=== PATIENT | female | born 1980 | race Caucasian/White ===

== ENCOUNTER 2016-05-25 17:05 | Emergency (ER) | payer OTHER ==
[~2016-05-25] VITALS: Ht 160 cm; Wt 69.4 kg
[~2016-05-25 17:05] MED LIST: MOTRIN800 MG PO; ROBITUSSIN AC,T10 ML PO
[2016-05-25 18:09] LABS: HEMATOCRIT 40.8 % (36.0-46.0); MCH 28.7 PG (29.0-34.0); MCHC 34.3 G/DL (30.0-36.0); MCV 83.8 FL (83-99); MEAN PLAT.VOLUME 10.4 uM^3 (9.5-12.4); PLATELET COUNT 226 K/uL (156-360); RBC DIS.WIDTH-CV 12.3 % (11.8-14.6); RBC DIS.WIDTH-SD 37.2 % (39-53); RED BLOOD COUNT 4.87 M/uL (3.80-5.20); WHITE BLOOD COUNT 4.6 K/uL (4.1-10.2)
[2016-05-25 18:20] LABS: CHLORIDE 104 mEq/L (99-109); POTASSIUM 3.7 mEq/L (3.7-5.4); SODIUM 139 mEq/L (136-147)
[2016-05-25 18:22] LABS: GLUCOSE 111 mg/dL (70-99)
[2016-05-25 18:23] LABS: ANION GAP 13 MEQ/L (2-14)
[2016-05-25 18:26] LABS: GFR ESTIMATE (CALCULATED) > 59 mL/min/
[2016-05-25 18:27] LABS: UREA NITROGEN (BUN) 5 mg/dL (9-23)
[2016-05-25 18:37] LABS: QUANTITATIVE HCG < 4.0 MIU/ML
[2016-05-25 23:24] LABS: D-DIMER ELISA 0.32 mg/L FEU (< 0.57)
[2016-05-25 23:26] LABS: TROP-I INTERPRETATION NEGATIVE; TROPONIN-I < 0.01 ng/mL (0.0-0.30)
[2016-05-26] MEDS ORDERED: ZOFRAN4 MG PO (00:01)
[2016-05-26 01:00] VITALS: BP 127/92
== END 2016-05-26 01:24 | disposition home or self-care (01) ==
LOC: EME 17:05
PROVIDERS: Emergency Medicine
DX: E86.0 Dehydration (principal); R19.7 Diarrhea, unspecified; R11.2 Nausea with vomiting, unspecified; R55 Syncope and collapse; S00.03XA Contusion of scalp, initial encounter; W18.30XA Fall on same level, unspecified, initial encounter; R00.2 Palpitations; R05 Cough
CPT/HCPCS: 71020; 80048; 84484; 84702; 85027; 85379; 93005; 99281; 99284; J7030

== ENCOUNTER 2016-08-22 17:29 | Emergency (ER) | payer OTHER ==
[~2016-08-22] VITALS: Ht 160 cm; Wt 72.1 kg
[~2016-08-22 17:29] MED LIST changes: +ZOFRAN4 MG PO
[2016-08-22 21:00] LABS: MCH 28.7 PG (29.0-34.0); MCHC 33.8 G/DL (30.0-36.0); MCV 84.9 FL (83-99); MEAN PLAT.VOLUME 10.2 uM^3 (9.5-12.4); PLATELET COUNT 328 K/uL (156-360); RBC DIS.WIDTH-CV 12.3 % (11.8-14.6); RBC DIS.WIDTH-SD 37.8 % (39-53); RED BLOOD COUNT 4.71 M/uL (3.80-5.20)
[2016-08-22 21:14] LABS: CHLORIDE 103 mEq/L (99-109); D-DIMER ELISA < 0.15 mg/L FEU (< 0.57); POTASSIUM 3.4 mEq/L (3.7-5.4); SODIUM 138 mEq/L (136-147)
[2016-08-22 21:16] LABS: GLUCOSE 104 mg/dL (70-99)
[2016-08-22 21:17] LABS: ANION GAP 10 MEQ/L (2-14)
[2016-08-22 21:18] LABS: TOTAL BILIRUBIN 0.5 mg/dL (0.0-1.0)
[2016-08-22 21:19] LABS: ALKALINE PHOSPHATASE 77 IU/L (3-129)
[2016-08-22 21:20] LABS: GFR ESTIMATE (CALCULATED) > 59 mL/min/
[2016-08-22 21:21] LABS: UREA NITROGEN (BUN) 6 mg/dL (9-23)
[2016-08-22 21:22] LABS: TROP-I INTERPRETATION NEGATIVE; TROPONIN-I < 0.01 ng/mL (0.0-0.30)
[2016-08-22] MEDS ORDERED: VENTOLIN HFA18 GM IH (21:57)
[2016-08-22] MEDS ORDERED: ZITHROMAX Z-PA250 MG PO (21:57)
[2016-08-22 22:07] VITALS: BP 134/74
== END 2016-08-22 22:10 | disposition home or self-care (01) ==
LOC: EME 17:29
PROVIDERS: Physician Assistant
DX: J32.9 Chronic sinusitis, unspecified (principal); J06.9 Acute upper respiratory infection, unspecified; R06.00 Dyspnea, unspecified
CPT/HCPCS: 71020; 80053; 84484; 85027; 85379; 93005; 99281; 99285

== ENCOUNTER 2016-09-17 10:28 | Emergency (ER) | payer OTHER ==
[~2016-09-17] VITALS: Ht 157.5 cm; Wt 72.5 kg
[~2016-09-17 10:28] MED LIST changes: +VENTOLIN HFA18 GM IH; +ZITHROMAX Z-PA250 MG PO
[2016-09-17 11:11] LABS: EOSINOPHIL (%) 0.3 % (0-5); IMMATURE GRANULOCYTE (%) 0.2 % (0.0-0.7); LYMPHOCYTE COUNT 1.5 K/uL (1.0-2.8); MCH 28.8 PG (29.0-34.0); MCHC 33.7 G/DL (30.0-36.0); MCV 85.3 FL (83-99); MEAN PLAT.VOLUME 10.2 uM^3 (9.5-12.4); MONOCYTE (%) 7.7 % (3-12); MONOCYTE COUNT 0.5 K/uL (0-0.8); NEUTROPHIL (%) 66.1 % (45-76); PLATELET COUNT 334 K/uL (156-360); RBC DIS.WIDTH-CV 12.4 % (11.8-14.6); RBC DIS.WIDTH-SD 38.4 % (39-53); RED BLOOD COUNT 5.04 M/uL (3.80-5.20)
[2016-09-17 11:18] LABS: CHLORIDE 107 mEq/L (99-109); POTASSIUM 3.9 mEq/L (3.7-5.4); SODIUM 140 mEq/L (136-147)
[2016-09-17 11:20] LABS: GLUCOSE 109 mg/dL (70-99)
[2016-09-17 11:21] LABS: ANION GAP 10 MEQ/L (2-14); D-DIMER ELISA < 0.15 mg/L FEU (< 0.57)
[2016-09-17 11:22] LABS: TOTAL BILIRUBIN 0.9 mg/dL (0.0-1.0)
[2016-09-17 11:24] LABS: ALKALINE PHOSPHATASE 81 IU/L (3-129); GFR ESTIMATE (CALCULATED) > 59 mL/min/
[2016-09-17 11:25] LABS: UREA NITROGEN (BUN) 10 mg/dL (9-23)
[2016-09-17 11:28] LABS: TROP-I INTERPRETATION NEGATIVE; TROPONIN-I < 0.01 ng/mL (0.0-0.30)
[2016-09-17 11:32] LABS: QUANTITATIVE HCG < 4.0 MIU/ML
[2016-09-17] MEDS ORDERED: ATARAX,VISTARIL50 MG PO (12:32)
[2016-09-17 12:51] VITALS: BP 134/104
== END 2016-09-17 12:53 | disposition home or self-care (01) ==
LOC: EXP 10:28 → EME 10:28 → EXP 12:53
PROVIDERS: Physician Assistant
DX: F41.0 Panic disorder [episodic paroxysmal anxiety] (principal); R00.2 Palpitations; R07.89 Other chest pain; R42 Dizziness and giddiness
CPT/HCPCS: 71020; 80053; 84484; 84702; 85025; 85379; 93005; 99281; 99283

== ENCOUNTER 2016-11-15 07:46 | Emergency (ER) | payer OTHER ==
[~2016-11-15] VITALS: Ht 157.5 cm; Wt 72.0 kg
[~2016-11-15 07:46] MED LIST changes: +ATARAX,VISTARIL50 MG PO
[2016-11-15 11:36] LABS: ADD MIUA? NO; BILIRUBIN NEGATIVE; BLOOD NEGATIVE; COLOR STRAW ((YELLOW)); GLUCOSE (STRIP) NEGATIVE; KETONES NEGATIVE; LEUKOCYTES NEGATIVE; NITRITE NEGATIVE; PROTEIN (STRIP) NEGATIVE; SPECIFIC GRAVITY 1.003 (1.000-1.030); UCUL ADDED? NO; UROBILINOGEN 0.2 MG/DL (0.2-1.0)
[2016-11-15 11:43] LABS: INTERNAL CONTROL VALID? YES
[2016-11-15 12:24] LABS: HEMATOCRIT 42.2 % (36.0-46.0); MCH 28.8 PG (29.0-34.0); MCHC 32.9 G/DL (30.0-36.0); MCV 87.4 FL (83-99); MEAN PLAT.VOLUME 10.5 uM^3 (9.5-12.4); PLATELET COUNT 320 K/uL (156-360); RBC DIS.WIDTH-CV 13.1 % (11.8-14.6); RBC DIS.WIDTH-SD 41.9 % (39-53); RED BLOOD COUNT 4.83 M/uL (3.80-5.20); WHITE BLOOD COUNT 10.3 K/uL (4.1-10.2)
[2016-11-15 12:39] LABS: CHLORIDE 104 mEq/L (99-109); POTASSIUM 3.8 mEq/L (3.7-5.4); SODIUM 140 mEq/L (136-147)
[2016-11-15 12:41] LABS: GLUCOSE 91 mg/dL (70-99)
[2016-11-15 12:42] LABS: ANION GAP 10 MEQ/L (2-14)
[2016-11-15 12:45] LABS: GFR ESTIMATE (CALCULATED) > 59 mL/min/
[2016-11-15 12:46] LABS: UREA NITROGEN (BUN) 8 mg/dL (9-23)
[2016-11-15] MEDS ORDERED: ZYRTEC10 M2 PO (13:08)
[2016-11-15] MEDS ORDERED: MUCUS ER600 MG PO (13:08)
[2016-11-15] MEDS ORDERED: ANTIVERT12.5 MG PO (13:08)
[2016-11-15 13:37] VITALS: BP 147/92
== END 2016-11-15 13:38 | disposition home or self-care (01) ==
LOC: EME 07:46
PROVIDERS: Nurse Practitioner Family
DX: R51 Headache (principal); Z91.048 Other nonmedicinal substance allergy status; R42 Dizziness and giddiness; R20.0 Anesthesia of skin; R13.10 Dysphagia, unspecified; R11.0 Nausea
CPT/HCPCS: 80048; 81003; 84703; 85027; 93005; 99281; 99283; J1100

== ENCOUNTER 2017-01-25 23:03 | Emergency (ER) | payer OTHER ==
[~2017-01-25] VITALS: Ht 157.5 cm; Wt 70.0 kg
[~2017-01-25 23:03] MED LIST changes: +ANTIVERT12.5 MG PO; +MUCUS ER600 MG PO; +ZYRTEC10 M2 PO
[2017-01-25 23:37] LABS: HEMATOCRIT 41.1 % (36.0-46.0); MCH 29.2 PG (29.0-34.0); MCHC 34.1 G/DL (30.0-36.0); MCV 85.8 FL (83-99); MEAN PLAT.VOLUME 10.2 uM^3 (9.5-12.4); PLATELET COUNT 332 K/uL (156-360); RBC DIS.WIDTH-CV 12.4 % (11.8-14.6); RBC DIS.WIDTH-SD 39.1 % (39-53); RED BLOOD COUNT 4.79 M/uL (3.80-5.20); WHITE BLOOD COUNT 11.6 K/uL (4.1-10.2)
[2017-01-25 23:47] LABS: D-DIMER ELISA < 150.00 ng/mLDDU (<230)
[2017-01-25 23:51] LABS: CHLORIDE 106 mEq/L (99-109); POTASSIUM 3.5 mEq/L (3.7-5.4); SODIUM 137 mEq/L (136-147)
[2017-01-25 23:53] LABS: GLUCOSE 107 mg/dL (70-99)
[2017-01-25 23:54] LABS: ANION GAP 13 MEQ/L (2-14)
[2017-01-25 23:55] LABS: TOTAL BILIRUBIN 0.7 mg/dL (0.0-1.0)
[2017-01-25 23:56] LABS: ALKALINE PHOSPHATASE 79 IU/L (3-129)
[2017-01-25 23:57] LABS: GFR ESTIMATE (CALCULATED) > 59 mL/min/
[2017-01-25 23:58] LABS: UREA NITROGEN (BUN) 9 mg/dL (9-23)
[2017-01-25 23:59] LABS: TROP-I INTERPRETATION NEGATIVE; TROPONIN-I < 0.01 ng/mL (0.0-0.30)
[2017-01-26] LABS: LIPASE 22 U/L (1.0-51.0)
[2017-01-26 01:24] LABS: SERUM ETHYL ALCOHOL < 10 mg/dL
[2017-01-26 01:27] LABS: CREATINE KINASE 44 IU/L (1-294)
[2017-01-26 02:36] LABS: AMPHETAMINE NEGATIVE (500 ng/mL); BARBITURATES NEGATIVE (200 ng/mL); BENZODIAZEPINES NEGATIVE (150 ng/mL); COCAINE NEGATIVE (150 ng/mL); INTERNAL CONTROLS VALID? YES; METHADONE NEGATIVE (200 ng/mL); METHAMPHETAMINE NEGATIVE (500 ng/mL); OPIATES (MORPHINE) NEGATIVE (100 ng/mL); OXYCODONE NEGATIVE (100 ng/mL); PHENCYCLIDINE NEGATIVE (25 ng/mL); PROPOXYPHENE NEGATIVE (300 ng/mL); THC CANNABINOIDS NEGATIVE (50 ng/mL); TRICYCLIC ANTIDEPRESSANTS NEGATIVE (300 ng/mL)
[2017-01-26 06:18] VITALS: BP 121/82
== END 2017-01-26 06:19 | disposition home or self-care (01) ==
LOC: EME 23:03
PROVIDERS: Emergency Medicine
DX: R00.0 Tachycardia, unspecified (principal); R07.89 Other chest pain; N63 Unspecified lump in breast; M79.602 Pain in left arm
CPT/HCPCS: 71020; 71275; 80053; 82550; 83690; 84484; 85027; 85379; 93005; 99281; 99285; G0480; J7030

== ENCOUNTER 2017-03-11 18:56 | Emergency (ER) | payer OTHER ==
[~2017-03-11] VITALS: Ht 160 cm; Wt 68.2 kg
[2017-03-11] MEDS ORDERED: ULTRAM50 MG PO (20:58)
[2017-03-11] MEDS ORDERED: ZOFRAN ODT4 MG PO (20:58)
[2017-03-11 21:34] VITALS: BP 136/99
== END 2017-03-11 21:36 | disposition home or self-care (01) ==
LOC: EME 18:56
DX: S06.0X0A Concussion without loss of consciousness, initial encounter (principal); W50.0XXA Accidental hit or strike by another person, initial encounter
CPT/HCPCS: 70450; 99281; 99283

== ENCOUNTER 2017-05-06 15:40 | Emergency (ER) | payer OTHER ==
[~2017-05-06] VITALS: Ht 160 cm; Wt 63.3 kg
[~2017-05-06 15:40] MED LIST changes: +ULTRAM50 MG PO; +ZOFRAN ODT4 MG PO
[2017-05-06 16:05] LABS: HEMATOCRIT 45.7 % (36.0-46.0); MCH 29.4 PG (29.0-34.0); MCHC 33.9 G/DL (30.0-36.0); MCV 86.6 FL (83-99); MEAN PLAT.VOLUME 10.9 uM^3 (9.5-12.4); PLATELET COUNT 309 K/uL (156-360); RBC DIS.WIDTH-CV 12.7 % (11.8-14.6); RBC DIS.WIDTH-SD 40.2 % (39-53); RED BLOOD COUNT 5.28 M/uL (3.80-5.20); WHITE BLOOD COUNT 5.9 K/uL (4.1-10.2)
[2017-05-06 16:20] LABS: ANION GAP 10 MEQ/L (2-14); CHLORIDE 101 MEQ/L (99-109); SAMPLE HEMOLYSIS CHECK 0; SAMPLE ICTERIC CHECK 0; SAMPLE LIPEMIA CHECK 0; SODIUM 139 MEQ/L (136-147)
[2017-05-06 16:22] LABS: TROP-I INTERPRETATION NEGATIVE; TROPONIN-I < 0.01 ng/mL (0.0-0.30)
[2017-05-06 16:25] LABS: GFR ESTIMATE (CALCULATED) > 59 mL/min/; GLUCOSE 109 mg/dL (70-99); UREA NITROGEN (BUN) 8 mg/dL (9-23)
[2017-05-06 16:50] LABS: QUANTITATIVE HCG < 4.0 MIU/ML
[2017-05-06 17:53] LABS: D-DIMER ELISA < 150.00 ng/mLDDU (<230)
[2017-05-06] MEDS ORDERED: MEDROL DOSEPAK4 MG PO (18:52)
[2017-05-06] MEDS ORDERED: NAPROSYN500 MG PO (18:52)
[2017-05-06 19:48] VITALS: BP 116/73
== END 2017-05-06 19:50 | disposition home or self-care (01) ==
LOC: EME 15:40
DX: S16.1XXA Strain of muscle, fascia and tendon at neck level, initial encounter (principal); M54.12 Radiculopathy, cervical region; X50.0XXA Overexertion from strenuous movement or load, initial encounter; R07.9 Chest pain, unspecified; Z88.6 Allergy status to analgesic agent; G89.29 Other chronic pain
CPT/HCPCS: 70450; 71020; 72125; 80048; 84484; 84702; 85027; 85379; 93005; 99281; 99285; J1100

== ENCOUNTER 2017-09-10 17:12 | Emergency (ER) | payer OTHER ==
[~2017-09-10] VITALS: Ht 157.5 cm; Wt 59.3 kg
[~2017-09-10 17:12] MED LIST changes: +MEDROL DOSEPAK4 MG PO; +NAPROSYN500 MG PO
[2017-09-10] MEDS ORDERED: ATIVAN1 MG PO (17:54)
[2017-09-10 18:14] VITALS: BP 137/94
[2017-09-10 18:21] LABS: HEMATOCRIT 44.5 % (36.0-46.0); HEMOGLOBIN 15.9 G/DL (11.9-15.5); MCHC 35.7 G/DL (30.0-36.0); MCV 86.7 FL (83-99); PLATELET COUNT 272 K/uL (156-360); RBC DIS.WIDTH-CV 11.6 % (11.8-14.6); RBC DIS.WIDTH-SD 37.2 % (39-53); RED BLOOD COUNT 5.13 M/uL (3.80-5.20); WHITE BLOOD COUNT 6.6 K/uL (4.1-10.2)
[2017-09-10 18:48] LABS: ALBUMIN 5.2 G/DL (3.2-4.8); CHLORIDE 101 MEQ/L (99-109); POTASSIUM 3.7 MEQ/L (3.7-5.4); SODIUM 138 MEQ/L (136-147); TOTAL BILIRUBIN 0.9 MG/DL (0.0-1.0)
[2017-09-10 18:54] LABS: ALKALINE PHOSPHATASE 80 IU/L (3-129); ALT (GPT) 8 IU/L (3-49); AST (GOT) 17 IU/L (2-34); CREATININE 0.7 MG/DL (0.6-1.3); GFR ESTIMATE (CALCULATED) > 59 mL/min/; GLUCOSE 106 mg/dL (70-99); TOTAL PROTEIN 8.3 G/DL (6.4-8.3); TROP-I INTERPRETATION NEGATIVE; TROPONIN-I < 0.01 ng/mL (0.0-0.30); UREA NITROGEN (BUN) 7 mg/dL (9-23)
== END 2017-09-10 19:21 | disposition home or self-care (01) ==
LOC: EME 17:12
PROVIDERS: Emergency Medicine Emergency Medical Services
DX: R07.9 Chest pain, unspecified (principal); F41.9 Anxiety disorder, unspecified; F43.9 Reaction to severe stress, unspecified; G47.00 Insomnia, unspecified; Z88.6 Allergy status to analgesic agent
CPT/HCPCS: 71046; 80053; 82140; 84484; 85027; 93005; 99281; 99285

== ENCOUNTER 2017-10-03 13:17 | Emergency (ER) | payer OTHER ==
[~2017-10-03] VITALS: Ht 158.8 cm; Wt 58.8 kg
[~2017-10-03 13:17] MED LIST changes: +ATIVAN1 MG PO
[2017-10-03 13:57] LABS: HEMATOCRIT 44.1 % (36.0-46.0); HEMOGLOBIN 15.5 G/DL (11.9-15.5); MCH 30.8 PG (29.0-34.0); MCHC 35.1 G/DL (30.0-36.0); MCV 87.5 FL (83-99); RBC DIS.WIDTH-CV 11.8 % (11.8-14.6); RBC DIS.WIDTH-SD 37.8 % (39-53); RED BLOOD COUNT 5.04 M/uL (3.80-5.20)
[2017-10-03 14:05] LABS: D-DIMER ELISA < 150.00 ng/mLDDU (<230)
[2017-10-03 14:06] LABS: CHLORIDE 105 mEq/L (99-109); POTASSIUM 3.8 mEq/L (3.7-5.4); SODIUM 140 mEq/L (136-147)
[2017-10-03 14:08] LABS: GLUCOSE 101 mg/dL (70-99)
[2017-10-03 14:12] LABS: CREATININE 0.8 mg/dL (0.6-1.3); GFR ESTIMATE (CALCULATED) > 59 mL/min/; UREA NITROGEN (BUN) 7 mg/dL (9-23)
[2017-10-03 14:17] LABS: TROP-I INTERPRETATION NEGATIVE; TROPONIN-I 0.02 ng/mL (0.0-0.30)
[2017-10-03 14:50] LABS: PLATELET COUNT 239 K/uL (156-360)
[2017-10-03 15:17] LABS: ALBUMIN 4.7 g/dL (3.2-4.8)
[2017-10-03 15:20] LABS: TOTAL PROTEIN 8.1 g/dL (6.4-8.3)
[2017-10-03 15:21] LABS: TOTAL BILIRUBIN 0.9 mg/dL (0.0-1.0)
[2017-10-03 15:22] LABS: ALKALINE PHOSPHATASE 86 IU/L (3-129)
[2017-10-03 15:25] LABS: AST (GOT) 17 IU/L (2-34); DIRECT BILIRUBIN 0.3 mg/dL (0.0-0.3)
[2017-10-03 15:26] LABS: ALT (GPT) 8 IU/L (3-49); LIPASE 16 U/L (1.0-51.0)
[2017-10-03 15:31] LABS: APPEARANCE CLOUDY ((CLEAR)); BILIRUBIN NEGATIVE; BLOOD NEGATIVE; COLOR YELLOW ((YELLOW)); GLUCOSE (STRIP) NEGATIVE; KETONES 20; LEUKOCYTES LARGE; NITRITE NEGATIVE; PROTEIN (STRIP) NEGATIVE; SPECIFIC GRAVITY 1.008 (1.000-1.030); UROBILINOGEN 0.2 MG/DL (0.2-1.0)
[2017-10-03 15:32] LABS: QUANTITATIVE HCG < 4.0 MIU/ML
[2017-10-03 15:37] LABS: BACTERIA 2+ /HPF; EPITHELIAL CELLS 3+ /HPF; MUCUS 2+ /LPF; RED BLOOD CELLS 0-5 /HPF (0-5); UCUL ADDED? YES; WHITE BLOOD CELLS TNTC /HPF (0-5)
[2017-10-03 16:13] LABS: THYROTROPIN (TSH) 2.6 MIU/L (0.4-5.5)
[2017-10-03 17:38] LABS: TROP-I INTERPRETATION NEGATIVE; TROPONIN-I 0.03 ng/mL (0.0-0.30)
[2017-10-03 19:17] LABS: APPEARANCE SL.HAZY ((CLEAR)); BILIRUBIN NEGATIVE; BLOOD NEGATIVE; COLOR YELLOW ((YELLOW)); GLUCOSE (STRIP) NEGATIVE; KETONES 80; LEUKOCYTES MODERATE; NITRITE NEGATIVE; PROTEIN (STRIP) NEGATIVE; SPECIFIC GRAVITY 1.012 (1.000-1.030); UROBILINOGEN 0.2 MG/DL (0.2-1.0)
[2017-10-03] MEDS ORDERED: ATARAX,VISTARIL25 MG PO (19:22)
[2017-10-03 19:34] LABS: UCUL ADDED? NO
[2017-10-03] MEDS ORDERED: KEFLEX500 MG PO (19:36)
[2017-10-03] MEDS ORDERED: ATIVAN1 MG PO (20:08)
[2017-10-03 21:13] VITALS: BP 127/84
== END 2017-10-03 21:14 | disposition home or self-care (01) ==
LOC: EME 13:17
PROVIDERS: Nurse Practitioner Family; Physician Assistant
DX: R00.0 Tachycardia, unspecified (principal); R00.2 Palpitations; N39.0 Urinary tract infection, site not specified; R42 Dizziness and giddiness
CPT/HCPCS: 71046; 80048; 80076; 81003; 83690; 84443; 84484; 84702; 85027; 85379; 87086; 93005; 99281; 99285; J2060; J7030

== ENCOUNTER → 2017-12-11 | Outpatient (CLI) | payer OTHER ==
[~2017-12-11] VITALS: Ht 158.8 cm; Wt 57.6 kg
[~2017-12-11] MED LIST changes: +ATARAX,VISTARIL25 MG PO; +BENTYL10 MG PO; +CARAFATE1 GM PO; +CENTRUM ADULTS1 EACH PO; +KEFLEX500 MG PO; +PREVACID30 MG PO
== END | disposition home or self-care (01) ==
LOC: AMB 11-17 13:00
DX: K29.70 Gastritis, unspecified, without bleeding (principal); K64.8 Other hemorrhoids; K92.1 Melena; K64.4 Residual hemorrhoidal skin tags; R19.4 Change in bowel habit; J30.2 Other seasonal allergic rhinitis; K21.9 Gastro-esophageal reflux disease without esophagitis; I49.1 Atrial premature depolarization
CPT/HCPCS: 88305; 88342 TC; J2250